=== PATIENT | female | born 1970 | race Caucasian/White ===

== ENCOUNTER 2019-01-26 06:00 | Outpatient (RCR) | payer OTHER, SELFPAY | END 2019-02-25 00:01 | LOC: SPT 06:00 | PROVIDERS: Family Provider Nurse Practitioner Family | DX: M47.816 Spondylosis without myelopathy or radiculopathy, lumbar region (principal); M99.04 Segmental and somatic dysfunction of sacral region; M50.122 Cervical disc disorder at C5-C6 level with radiculopathy | CPT/HCPCS: 97140 ×3; G0283 ×3 ==

== ENCOUNTER 2019-02-26 06:00 | Outpatient (RCR) | payer SELFPAY | END 2019-03-04 23:00 | disposition home or self-care (01) | LOC: SPT 06:00 | PROVIDERS: Family Provider Nurse Practitioner Family; PCP Nurse Practitioner Family | DX: M47.816 Spondylosis without myelopathy or radiculopathy, lumbar region (principal); M99.04 Segmental and somatic dysfunction of sacral region; M50.122 Cervical disc disorder at C5-C6 level with radiculopathy ==

== ENCOUNTER 2019-04-02 13:15 | Outpatient (CLI) | payer BC, SELFPAY ==
--- NOTE | 2019-04-02 13:29 | XR_ITS ---
WS: [id number] LUMBAR SPINE FLEXION AND EXTENSION TECHNIQUE: 3 views of the lumbar spine: Lateral neutral, flexion, and extension views. CLINICAL INFORMATION: LOW BACK PAIN COMPARISON: None. FINDINGS: Normal lumbar alignment on the neutral view. No instability on the flexion and extension views. Disc space narrowing worse L5-S1 with vacuum disc phenomenon. Mild facet arthropathy L4-L5 and L5-S1. Mild chronic anterior wedging at T11. Bony forami nal narrowing L5-S1. XR/XR lumbar spine f/e only [id number] IMPRESSION: 1. No instability on flexion-extension. 2. Disc space narrowing worse L5-S1. 3. Mild facet arthropathy lower lumbar spine with bony foraminal narrowing L5- S1.
== END 2019-04-02 13:16 | disposition home or self-care (01) ==
LOC: WPI 13:22
PROVIDERS: Family Provider Nurse Practitioner Family; PCP Nurse Practitioner Family; Visit Provider Nurse Practitioner
DX: M54.5 Low back pain (principal); M47.817 Spondylosis without myelopathy or radiculopathy, lumbosacral region
CPT/HCPCS: 72120

== ENCOUNTER 2019-04-15 09:47 | Outpatient (CLI) | payer BC, SELFPAY ==
--- NOTE | 2019-04-15 09:54 | MM_ITS ---
WS: [id number] BILATERAL DIGITAL SCREENING MAMMOGRAPHY WITH CAD CLINICAL INFORMATION: SCREENING HISTORY: Screening mammogram. No current complaints. COMPARISON: March 19, 2014 TECHNIQUE: Bilateral CC and MLO views. FINDINGS: The breasts are composed of heterogeneous fibroglandular density tissue, which can limit the detectio n of small underlying mass lesions. No suspicious mass, asymmetry, calcifications, or architectural d istortion. No evidence of malignancy. MM/[place] [id number] IMPRESSION: BI-RADS: 1-Negative FOLLOW UP: 1 Year Follow-up Recommend return to annual screening mammography.
== END 2019-04-15 09:48 | disposition home or self-care (01) ==
LOC: RADSHAW 09:52
PROVIDERS: Family Provider Nurse Practitioner Family; PCP Nurse Practitioner Family; Visit Provider Nurse Practitioner Family
DX: Z12.31 Encounter for screening mammogram for malignant neoplasm of breast (principal)
CPT/HCPCS: 77067

== ENCOUNTER → 2019-10-02 14:30 | Outpatient (BNVA) | payer BC, SELFPAY | PROVIDERS: Family Provider Nurse Practitioner Family; PCP Nurse Practitioner Family; Visit Provider Nurse Practitioner Family | DX: R53.83 Other fatigue (principal); E78.2 Mixed hyperlipidemia; D64.9 Anemia, unspecified; E55.9 Vitamin D deficiency, unspecified; W57.XXXA Bitten or stung by nonvenomous insect and other nonvenomous arthropods, initial encounter; Z79.899 Other long term (current) drug therapy; H66.90 Otitis media, unspecified, unspecified ear; N39.0 Urinary tract infection, site not specified; B96.29 Other Escherichia coli [E. coli] as the cause of diseases classified elsewhere; Z16.12 Extended spectrum beta lactamase (ESBL) resistance | CPT/HCPCS: 80053; 80061; 81003; 82306; 82607; 82746; 83036; 83540; 84443; 85025; 86000; 86618; 86666; 86757; 87077; 87086; 87186 ==

== ENCOUNTER 2019-10-09 19:18 | Emergency (ER) | payer BC, SELFPAY ==
[2019-10-09 19:31] VITALS: BP 177/90; PULSE 83; RESP 16; TEMP 36.8; O2SAT 100; BMI 34.0
--- NOTE | 2019-10-09 20:00 | ED_ITS ---
HPI - Extremity Problem General: Chief complaint: Extremity Injury, Lower Stated complaint: RIGHT LEG INJURY Time Seen by Provider: 10/09/19 19:40 Source: patient Mode of arrival: ambulatory Limitations: no limitations History of Present Illness: HPI Narrative: [place] and scraped her right jessica on an object. She sustained an abrasion on the leg and there is some pain and swelling. She went to her PCP's office at closing time and they asked her to come to the ED to be evaluated. They were wondering whether she may have had a clot (from an injury a couple of hours ago). She has no difficulty bearing weight on the RLE, has no recent history of long distance travel, no prior DVT history. MD Complaint: extremity pain Onset (ago): hour(s) Pain Consistency: constant Location: right and lower extremity Severity scale (1-10): 2 Quality: aching Radiation: none Relieving factors: other (none tried) Exacerbating factors: palpation Associated symptoms: Deny arthralgias, chest pain, fever(s), rash or short of breath Review of Systems General: Reports: 10 or more systems reviewed and unremarkable except in HPI and below Const: Denies: fever(s) Eyes: Denies: change in vision or blurry vision ENMT: Denies: throat pain, enlarged tonsils, odynophagia, hoarseness, mouth pain or swelling of lips/tongue Card: Denies: chest pain Resp: Denies: dyspnea, productive cough or non-productive cough GI: Denies: abdominal pain, nausea or vomiting : Denies: flank pain, difficulty voiding, dysuria, urinary frequency, urinary urgency or urinary hesitancy Musc: Denies: neck pain, back pain or extremity swelling Skin/Breast: Reports: new lesions (abrasion); Denies: rash, pruritus or erythema Neuro: Denies: headache(s), numbness in extremities or weakness in extremities Endo: Denies: polyuria, polydipsia or tired all the time [facility] PFSH: Medical History Anemia Medication management Mixed hyperlipidemia Otitis media Rectal bleeding Tick bite UTI due to extended-spectrum beta lactamase (ESBL) producing Escherichia coli Vitamin D deficiency Surgical History H/O section H/O neck surgery H/O: hysterectomy partial Hx of appendectomy Hx of breast reduction, elective Hx of cholecystectomy Family History Father Cancer colon cancer Grandfather Cancer colon cancer Family/Other Cancer 2 uncles with colon cancer Other Diabetes Denies family history of CAD (coronary artery disease) Anesthesia complication Bleeding disorder Social History Smoking and tobacco status: never smoked Alcohol intake: never Lives independently: Yes Marital status: Single Current occupational status: employed History of recent travel: Yes ([place]) Out of state: Yes Out of country: No Physical Exam Const: COMMON NORMALS: no acute distress, average body habitus, patient oriented x3, no limitations, healthy appearing, alert and well nourished HENMT: COMMON NORMALS: normocephalic, atraumatic and moist oral mucous membranes HEAD & SCALP: normocephalic and atraumatic Neck/C-Spine: COMMON NORMALS: full ROM, supple, no meningeal signs, no JVD and No carotid bruits Resp: COMMON NORMALS: normal respiratory effort, No retractions, No use of accessory muscles, clear to auscultation bilaterally and percussion normal AUSCULTATION: clear to auscultation bilaterally PERCUSSION: percussion normal Cardio: COMMON NORMALS: no JVD, regular rate, regular rhythm, S1 normal heart sound present, S2 normal heart sound present, No gallops present (Cardio), No clicks present (Cardio), No murmurs present (Cardio), No rub (Cardio) and Peripheral pulses 2+ throughout RATE: regular rate RHYTHM: regular rhythm HEART SOUNDS: S1 normal heart sound present and S2 normal heart sound present PERIPHERAL PULSES: Peripheral pulses 2+ throughout GI: COMMON NORMALS: Normal to inspection, nondistended, normoactive bowel sounds present, Soft to palpation, non-tender, No hepatosplenomegaly present, no masses and no bruits PALPATION: Yes Soft to palpation and Yes No hepatosplenomegaly present : COMMON NORMALS: Yes no CVA tenderness BLADDER/KIDNEY EXAM: Yes no CVA tenderness Back/Pelvis: COMMON NORMALS: no CVA tenderness Extremity: COMMON NORMALS: normal to inspection, full ROM, capillary refill normal, no calf tenderness and no pedal edema NARRATIVE EXTREMITY EXAM: Knee joint normal in examination Neuro: COMMON NORMALS: patient oriented x3 SENSORIUM/ORIENTATION: Yes alert MENINGEAL SIGNS: Yes no meningeal signs Skin: COMMON NORMALS: no wounds, turgor normal, no jaundice, no petechiae and no mottling GENERAL SKIN EXAM: turgor normal TRAUMA: abrasion (abrasion noted to her right anterior leg with no bleeding. ) OTHER: Swelling around the abrasion with mild tenderness. No bleeding. No calf tenderness. She has erythema consistent with sun [place] on both upper and lower extremities. Course ED course: Patient with a fall who sustained an abrasion to her right anterior leg. Examination is unremarkable for serious injuries and she is discharged home with wound care instructions. Vital Signs: Vital signs: Vital Signs Temperature 98.2 F 10/09/19 19:31 Pulse Rate 68 10/09/19 20:44 Respiratory Rate 18 10/09/19 20:44 Blood Pressure 112/74 10/09/19 20:44 Pulse Oximetry 99 10/09/19 20:44 MDM - Extremity (Nontraumatic) MDM Narrative: Medical decision making narrative: Patient who presented to the ED with an abrasion to her right leg following a fall. No serious injury on examination. She is discharged home on conservative measures and wound care instructions. Medical Records: Attestation: I reviewed the patient's medical records. Discharge Plan Discharge Patient Disposition: Home Clinical Impression: Abrasion Contusion Qualifiers: Encounter type: initial encounter Contusion area: lower leg Laterality: right Qualified Code(s): S80.11XA - Contusion of right lower leg, initial encounter Fall Qualifiers: Encounter type: initial encounter Qualified Code(s): W19.XXXA - Unspecified fall, initial encounter Condition: Stable Prescriptions: Continued lidocaine HCl [Xylocaine] 10 mg/mL (1 %) solution 2 ml IM ONCE Qty: 1 RF: 0 lisinopril-hydrochlorothiazide 10-12.5 mg tablet PO RF: 0 lidocaine HCl [Xylocaine] 10 mg/mL (1 %) solution 1 ml IM ONCE Qty: 1 RF: 0 amoxicillin-pot clavulanate [Augmentin] 875-125 mg tablet 1 tab PO BID 7 Days Qty: 14 RF: 0 nitrofurantoin monohyd/m-cryst [Macrobid] 100 mg capsule 100 mg PO Q12H 7 Days Qty: 14 RF: 0 Discharge Orders: Discharge Order (Routine); Ordered 10/09/19 Ordered By: Annie Braden Referrals: MARKO Fan, AEROBICS INSTRUCTOR [Primary Care Provider] - 4-7 days Discharge Diet: Usual diet Discharge Activity: Increase activity as tolerated Patient Instructions: Abrasion (ED), Fall Prevention (ED) Activity Restrictions/Additional Instructions: Return for any new or worsening symptoms. Apply ice to the right leg to reduce swelling. Clean the abrasion daily with soap and water and apply an antibiotic ointment to it. Follow-up with your primary care provider within 1 week. Elevate your leg to reduce swelling. Discharge Date/Time: 10/09/19 20:45 Coding Level of Care Code ED Tank Driver for May Washburn
[2019-10-09 20:44] VITALS: BP 112/74; PULSE 68; RESP 18; O2SAT 99
== END 2019-10-09 20:45 | disposition home or self-care (01) ==
PROVIDERS: Emergency Provider Family Medicine; PCP Nurse Practitioner Family
DX: S80.11XA Contusion of right lower leg, initial encounter (principal); W01.198A Fall on same level from slipping, tripping and stumbling with subsequent striking against other object, initial encounter; E78.2 Mixed hyperlipidemia
CPT/HCPCS: 12345; 99281

== ENCOUNTER 2019-10-13 06:05 | Day surgery (SDC) | payer BC, SELFPAY ==
[2019-10-10 07:38] VITALS: BMI 34.8
[2019-10-13 06:22] VITALS: BP 131/101; PULSE 83; RESP 16; TEMP 37; O2SAT 97
--- NOTE | 2019-10-13 06:32 | W.PM.OPSUD ---
Surgery/Procedure H&P Update DATE OF PROCEDURE: October 13, 2019 DATE H&P PERFORMED: 09/24/19 H&P UPDATE INFORMATION: I have reviewed H&P completed within last 30 days, I have examined patient prior to procedure and No changes to prior documentation (Except patient had an abrasions on her RLE few days ago [place] PREOP DIAGNOSIS: Bleeding per rectum and family history of colon cancer PRIMARY INDICATION FOR PROCEDURE: The same PLANNED PROCEDURE: Operation Date: 10/13/19 07:00 Proposed Procedures p Colonoscopy 41385 K62.5(Not Applicable) - Franco Couch MD
[2019-10-13] MEDS: sodium chloride 0.9% 1,000 ML 30 ML IV (06:37)
--- NOTE | 2019-10-13 06:42 | ANES.PREANE2 ---
Pre-Anesthetic Assessment Pre-Anesthetic Assessment: Height/Weight: Height 1.73 m Weight 103.873 kg Temp Pulse Resp BP Pulse Ox 98.6 F 83 16 131/101 97 10/13/19 06:22 10/13/19 06:22 10/13/19 06:22 10/13/19 06:22 10/13/19 06:22 Preop Diagnosis: Bleeding per rectum and family history of colon cancer Proposed Procedure: Operation Date: 10/13/19 07:00 Proposed Procedures p Colonoscopy 93946 K62.5(Not Applicable) - Franco Couch MD Familial anesthetic complications: none Was Beta Lisa taken within 24 hours: N/A Last intake: Intake Last Liquid Date 10/12/19 Last Liquid Time 21:00 Last Solid Date 10/11/19 Last Solid Time 04:00 Social: Social History: No alcohol and No tobacco Exam: Pre-Anes Outpt Exam: alert, oriented x 3, clear to auscultation bilaterally and regular rate & rhythm Airway: Submandibular: WNL Cervical ROM: WNL MP: 1 Dentition: Full Pulmonary: Pulmonary: None reported CV/HEM: CV/HEM: Arrythmia, HTN and Murmur : : UTI (on antibiotics for UTI currently) Hepatic: Hepatic: Hepatitis (Patient claims hepatitis A years ago from a nearby sewage [place] she was around) GI: GI: None reported Metabolic: Metabolic: Morbid obesity Musc/skel: Musc/skel: Lower Back Pain Neuropsych: Neuropsych: None reported Anesthetic Plan: ASA status: 2 Anesthesia: MAC Risk of > 500 ml blood loss (7ml/kg in children): No Meds/Allergies Current Medications: Current Medications Generic Name Dose Route Start Last Admin Trade Name Freq PRN Reason Stop Dose Admin Sodium Chloride 1,000 mls @ 30 ml s/hr 10/13/19 06:15 10/13/19 06:37 Sodium Chloride 0.9% IV 10/14/19 06:14 30 mls/hr .Q24H AGATHA Administration PFSH Anesthesia PFSH: Medical History Anemia Medication management Mixed hyperlipidemia Otitis media Rectal bleeding Tick bite UTI due to extended-spectrum beta lactamase (ESBL) producing Escherichia coli Vitamin D deficiency Surgical History H/O section H/O neck surgery H/O: hysterectomy partial Hx of appendectomy Hx of breast reduction, elective Hx of cholecystectomy Family History Father Cancer colon cancer Grandfather Cancer colon cancer Family/Other Cancer 2 uncles with colon cancer Other Diabetes Denies family history of CAD (coronary artery disease) Anesthesia complication Bleeding disorder Social History Smoking and tobacco status: never smoked Alcohol intake: never Lives independently: Yes Marital status: Single Current occupational status: employed History of recent travel: Yes ([place]) Out of state: Yes Out of country: No Data Anesthesia Cardiac Studies: No Data to Display
--- NOTE | 2019-10-13 07:07 | SUR.OPER ---
clip placed at rt colon bx site
[2019-10-13 07:17] VITALS: BP 118/68; PULSE 91; RESP 16; TEMP 36.3; O2SAT 97
--- NOTE | 2019-10-13 07:20 | ANE.PACU2 ---
Inpatient post-anesthesia follow up: Airway intact: Yes Vital signs: Temperature 98.6 F Pulse Rate 83 Respiratory Rate 16 Blood Pressure 131/101 Pulse Oximetry 97 Oxygen Delivery Me thod Oxygen Flow Rate Fraction of Inspir ed Oxygen Hydration adequate: Yes Nausea and vomiting: No Pain level: 1 Mental status: Baseline
[2019-10-13 07:34] VITALS: BP 118/82; PULSE 71; RESP 18; O2SAT 97
== END 2019-10-13 07:55 | disposition home or self-care (01) ==
PROVIDERS: PCP Nurse Practitioner Family; Visit Provider Surgery
PROC: 0DJD8ZZ Inspection of Lower Intestinal Tract, Via Natural or Artificial Opening Endoscopic (ICD-10-PCS; CPT 45378; principal; 2019-10-13 07:00)
DX: D12.7 Benign neoplasm of rectosigmoid junction (principal); D12.2 Benign neoplasm of ascending colon; Z80.0 Family history of malignant neoplasm of digestive organs; I10 Essential (primary) hypertension; R01.1 Cardiac murmur, unspecified; E78.2 Mixed hyperlipidemia; E55.9 Vitamin D deficiency, unspecified; D64.9 Anemia, unspecified
CPT/HCPCS: 12345; 45380; 88305; J2704; J7030

== ENCOUNTER → 2020-02-04 11:47 | Outpatient (BNVA) | payer BC, SELFPAY | PROVIDERS: PCP Nurse Practitioner Family; Visit Provider Nurse Practitioner | DX: N39.0 Urinary tract infection, site not specified (principal) | CPT/HCPCS: 81000; 87086 ==

== ENCOUNTER → 2020-03-17 17:28 | Outpatient (BNVA) | payer BC, SELFPAY | PROVIDERS: PCP Nurse Practitioner Family; Visit Provider Nurse Practitioner | DX: N39.0 Urinary tract infection, site not specified (principal); B37.3 Candidiasis of vulva and vagina | CPT/HCPCS: 81000; 87086 ==

== ENCOUNTER 2020-05-27 09:29 | Outpatient (CLI) | payer BC, SELFPAY ==
--- NOTE | 2020-05-27 10:00 | MM_ITS ---
WS: [id number] BILATERAL DIGITAL SCREENING MAMMOGRAPHY WITH CAD CLINICAL INFORMATION: Z12.31 - Encounter for screening mammogram for malignant neoplasm of breast HISTORY: Screening mammogram. Bilateral breast tenderness COMPARISON: April 15, 2019 TECHNIQUE: Bilateral CC and MLO views. FINDINGS: Evidence of prior breast reduction. The breasts are composed of heterogeneous fibroglandular density tissue, which can limit the detectio n of small underlying mass lesions. No suspicious mass, asymmetry, calcifications, or architectural d istortion. No evidence of malignancy. MM/[place] [id number] IMPRESSION: BI-RADS: 2-Benign FOLLOW UP: 1 Year Follow-up Recommend return to annual screening mammography.
== END 2020-05-27 09:30 | disposition home or self-care (01) ==
LOC: RADSHAW 09:30
PROVIDERS: PCP Nurse Practitioner Family; Visit Provider Nurse Practitioner Family
DX: Z12.31 Encounter for screening mammogram for malignant neoplasm of breast (principal)
CPT/HCPCS: 77067

== ENCOUNTER 2020-07-15 11:01 | Outpatient (CLI) | payer OTHER, SELFPAY ==
--- NOTE | 2020-07-15 11:34 | XR_ITS ---
WS: [id number] Left rib detail, 3 views, 07/15/2020 Clinical Data: trauma to rib cage Comparison: None. Findings: No rib fractures are seen. There is no subcutaneous emphysema or left pleural effusion. No left pneum othorax is noted. There are disc spacers in the lower cervical discs. There are clips in the right up per quadrant from a cholecystectomy. XR/XR ribs LT 2V* [id number] Impression: Negative left rib detail.
--- NOTE | 2020-07-15 11:34 | XR_ITS ---
WS: [id number] Right elbow, 3 views, 07/15/2020 Clinical Data: trauma to elbow Comparison: None. Findings: No fractures or dislocations are seen. The radial head is normal. The soft tissues are unremarkable. XR/XR elbow RT min 3V* [id number] Impression: Negative right elbow.
== END 2020-07-15 11:02 | disposition home or self-care (01) ==
LOC: RADWPI 11:05
PROVIDERS: PCP Nurse Practitioner Family; Visit Provider Family Medicine
DX: S46.911A Strain of unspecified muscle, fascia and tendon at shoulder and upper arm level, right arm, initial encounter (principal); S20.212A Contusion of left front wall of thorax, initial encounter; X58.XXXA Exposure to other specified factors, initial encounter
CPT/HCPCS: 71100; 73080

== ENCOUNTER 2020-08-10 06:00 | Outpatient (RCR) | payer OTHER, SELFPAY | END 2020-08-25 23:59 | disposition home or self-care (01) | LOC: SPT 06:00 | PROVIDERS: PCP Nurse Practitioner Family; Referring Provider Family Medicine; Visit Provider Family Medicine | DX: S29.011D Strain of muscle and tendon of front wall of thorax, subsequent encounter (principal); Y99.0 Civilian activity done for income or pay; S46.911D Strain of unspecified muscle, fascia and tendon at shoulder and upper arm level, right arm, subsequent encounter; X58.XXXD Exposure to other specified factors, subsequent encounter | CPT/HCPCS: 97110; 97140; 97162 ==

== ENCOUNTER 2020-08-26 06:00 | Outpatient (RCR) | payer OTHER, BC, SELFPAY | END 2020-09-25 23:59 | disposition home or self-care (01) | LOC: SPT 06:00 | PROVIDERS: PCP Nurse Practitioner Family; Referring Provider Family Medicine; Visit Provider Family Medicine | DX: S29.011A Strain of muscle and tendon of front wall of thorax, initial encounter (principal); S46.911A Strain of unspecified muscle, fascia and tendon at shoulder and upper arm level, right arm, initial encounter; X58.XXXA Exposure to other specified factors, initial encounter; Y99.0 Civilian activity done for income or pay | CPT/HCPCS: 97110; 97140 ==

== ENCOUNTER 2020-12-09 12:23 | Outpatient (CLI) | payer BC, SELFPAY ==
[2020-12-09 12:49] LABS: Basophils % 0.4 %; Eosinophils # 0.2 10^3/uL (0.0-0.8); Eosinophils % 3.2 %; Hematocrit 41.3 % (37.0-47.0); Hemoglobin 13.7 g/dL (11.5-15.3); Lymphocytes # 1.6 10^3/uL (0.8-4.8); Lymphocytes % 29.9 %; Mean Corpuscular HGB Conc 33.2 g/dL (30.0-36.0); Mean Corpuscular Hemoglobin 28.4 pg (28.0-34.0); Mean Corpuscular Volume 85.5 fl (81-99); Monocytes # 0.3 10^3/uL (0.2-0.9); Monocytes % 6.2 %; Neutrophils # 3.23 10^3/uL (1.8-7.7); Neutrophils % 60.1 %; Nucleated Red Blood Cells % 0 %; Platelet Count 265 10^3/cmm (130-400); Red Blood Count 4.83 10^6/uL (4.1-5.3); Red Cell Distribution Width 12.5 % (12.1-15.1); White Blood Count 5.4 10^3/uL (4.0-10.0)
[2020-12-09 13:18] LABS: Estmated Average Glucose 120; Hemoglobin A1C 5.8 % (4.0-6.0)
[2020-12-09 13:53] LABS: 25 Hydroxy Vitamin D 58 ng/mL (30-100); Alanine Aminotransferase 31 U/L (0-33); Albumin Level 4.1 g/dL (3.5-5.2); Alkaline Phosphatase 109 IU/L (35-105); Anion Gap 12.9 (5-19); Aspartate Amino Transferase 26 U/L (0-32); Blood Urea Nitrogen 13 mg/dL (6-20); Carbon Dioxide 26 mmol/L (22-29); Chloride 103 mmol/L (98-107); Chol HDL Ratio 4.03 mg/dL (0.0-4.40); Cholesterol 149 mg/dL (0-200); Globulin 2.8 g/dL (1.3-4.6); Glomerular Filtration Rate 75.6 mL/min (90-130); Glucose 110 mg/dL (65-115); HDL Cholesterol 37 mg/dL (60-100); Iron 62 ug/dL (37-145); LDL Cholesterol Calculated 47 mg/dL (50-129); LDL HDL Ratio 1.27 RATIO (0.00-3.22); Osmolality Calculated 287 mOsm/kg (285-295); Potassium 3.9 mmol/L (3.5-5.1); Sodium 138 mmol/L (136-145); Thyroid Stimulating Hormone 2.94 uIU/mL (0.27-4.20); Total Bilirubin 0.3 mg/dL (0.15-1.2); Total Iron Binding Capacity 310 mcg/dl; Total Protein 6.9 g/dL (6.6-8.7); Triglycerides 326 mg/dL (0-150); Unsaturated Iron Binding 248 ug/dL (112-347); Vitamin B12 456 pg/mL (232-1245)
== END 2020-12-09 12:24 | disposition home or self-care (01) ==
LOC: LAB 12:28
PROVIDERS: PCP Nurse Practitioner Family; Visit Provider Nurse Practitioner Family
DX: I10 Essential (primary) hypertension (principal); E55.9 Vitamin D deficiency, unspecified; Z79.899 Other long term (current) drug therapy; D64.9 Anemia, unspecified; E78.2 Mixed hyperlipidemia
CPT/HCPCS: 36415; 80053; 80061; 82306; 82607; 83036; 83540; 83550; 84443; 85025

== ENCOUNTER 2021-03-22 19:19 | Outpatient (CLI) | payer BC, SELFPAY ==
--- NOTE | 2021-03-22 19:34 | XR_ITS ---
WS: [id number] Right knee, 3 views, 03/22/2021 Clinical Data: injury Comparison: None. Findings: No fractures or dislocations are seen. The joint spaces are normal. The patella is intact. The soft t issues are unremarkable. XR/XR knee RT 3V* [id number] Impression: Negative right knee. Kellgren-Chris Classification: grade 0 (none): definite absence of x-ray ed nges of osteoarthritis
== END 2021-03-22 19:20 | disposition home or self-care (01) ==
LOC: RAD 19:22
PROVIDERS: PCP Nurse Practitioner Family; Visit Provider Registered Nurse Neonatal Intensive Care
DX: S89.91XA Unspecified injury of right lower leg, initial encounter (principal); X58.XXXA Exposure to other specified factors, initial encounter
CPT/HCPCS: 73562

== ENCOUNTER 2021-04-07 12:18 | Outpatient (CLI) | payer OTHER, SELFPAY ==
--- NOTE | 2021-04-07 12:30 | USCV_ITS ---
Saida Keita Age: 50 Gender: F : 1970 Exam Date: 04/07/2021 12:54 Ordering Phys: Kelton Anderson MD Technologist: LICHA Exam Location: [facility] Indication: DVT PROCEDURES: Venous duplex imaging was performed in bilateral lower extremities. The following venous structures were evaluated: common femoral vein, profunda vein, proximal portion of the greater saphenous vein, superficial femoral vein, and the popliteal vein. In addition, the posterior tibial and peroneal trunk were evaluated. Serial compression, augmentation maneuvers, and spectral Doppler flow evaluation were performed. FINDINGS: Normal 2-D Doppler and augmentation and compressibility throughout the lower extremity venous structures. Additional imaging through the proximal calf veins also reveals no thrombus. Limited evaluation of the greater saphenous vein is patent with no thrombus. CONCLUSIONS No DVT right lower extremity. Dr. Janey Dubose DO (Electronically Signed) Final Date: 07 April 2021 14:38 Amended: 07 April 2021 16:00 C
--- NOTE | 2021-04-07 13:15 | US_ITS ---
WS: [id number] ULTRASOUND SOFT TISSUES RIGHT lower extremity. HISTORY: posterior leg injury while running..., Possible hamstring injury. COMPARISON: None available. TECHNIQUE: 2-D and color Doppler imaging is submitted. Ultrasound is performed from the RIGHT ischial tuberosity to the knee. No focal area of tendon retrac tion. There is no significant amount of edema. There is very slight interruption of the muscle fibers posterior to the RIGHT knee which may represent a small muscle tear. This exact muscle group cannot be determined. There is not a lot of fluid. US/US soft tissue/extremity [id number] IMPRESSION: 1. No significant amount of fluid or blood along the region of the RIGHT hamst ring. 2. Suspect there may be a small tear involve the muscles just above the knee. For further evaluation consider MRI of the RIGHT knee.
== END 2021-04-07 12:19 | disposition home or self-care (01) ==
PROVIDERS: PCP Nurse Practitioner Family; Visit Provider Family Medicine
DX: I82.409 Acute embolism and thrombosis of unspecified deep veins of unspecified lower extremity (principal); S76.319A Strain of muscle, fascia and tendon of the posterior muscle group at thigh level, unspecified thigh, initial encounter; X58.XXXA Exposure to other specified factors, initial encounter
CPT/HCPCS: 76882; 93971

== ENCOUNTER → 2021-09-30 11:09 | Outpatient (BNVA) | payer SELFPAY | PROVIDERS: PCP Nurse Practitioner Family; Visit Provider Nurse Practitioner Family | DX: E55.9 Vitamin D deficiency, unspecified (principal); D64.9 Anemia, unspecified; I10 Essential (primary) hypertension | CPT/HCPCS: 80053; 82306; 85025 ==

== ENCOUNTER 2021-12-05 09:38 | Outpatient (CLI) | payer OTHER, MEDICAID, SELFPAY ==
--- NOTE | 2021-12-05 09:54 | XR_ITS ---
WS: [id number] Lumbar spine, 3 views, 12/05/2021 Clinical Data: M54.50 - Low back pain, unspecified Comparison: Lateral lumbar spine, 04/02/2019 Findings: No compression fractures or subluxation is seen. There is degenerative disc narrowing at L5-S1. Anter ior osteophyte formation is seen at all the lumbar vertebra.. The transverse processes and SI joints are normal. Facet joint arthritis is present from L4 through S1. XR/XR lumbar spine 2-3V* [id number] Impression: 1. Degenerative disc narrowing L5-S1. 2. Anterior osteophyte formation at all lumbar levels with facet joint arthriti s L4-S1.
== END 2021-12-05 09:39 | disposition home or self-care (01) ==
LOC: RAD 09:40
PROVIDERS: PCP Nurse Practitioner Family; Visit Provider Nurse Practitioner Family
DX: M54.50 Low back pain, unspecified (principal); M25.78 Osteophyte, vertebrae
CPT/HCPCS: 72100

== ENCOUNTER 2022-01-10 15:17 | Outpatient (CLI) | payer OTHER, MEDICAID, SELFPAY ==
--- NOTE | 2022-01-10 15:15 | MR_ITS ---
WS: [id number] MRI LUMBAR SPINE NONCONTRAST HISTORY: Low back pain for 20 years. Leg swelling and tingling. COMPARISON: No similar studies. TECHNIQUE: Sagittal and axial multisequence imaging is submitted. Prior cervical fusion at C5-6 and C6-7. L3 retrolisthesis by 2 mm. Mild disc space narrowing and desiccation throughout the lumbar spine most significant at L5-S1. No fractures or marrow edema. Conus terminates normally at L1. T11-12: Mild annular disc bulging and osteophytic ridging. Benign hemangioma within T11. L1-L2: Mild ligamentum flavum and facet arthritis. No stenosis. L2-L3: Mild annular disc bulge and moderate facet and ligamentum flavum arthritis. No stenosis. L3-L4: Moderate annular disc bulge with moderate ligamentum flavum and facet arthritis encroaching in to the central canal and subarticular recesses. No focal disc protrusion. There is mild central and b ilateral subarticular recess encroachment. Most significant encroachment upon the traversing L4 nerve roots. Very minimal RIGHT foraminal narrowing. L4-L5: Mild disc bulging with a small LEFT foraminal disc protrusion. Moderate ligamentum flavum and facet arthritis encroaching towards the central canal. Mild central and bilateral subarticular recess stenosis. No foraminal stenosis. L5-S1: Diffuse osteophytic ridging and disc bulging. Disc asymmetrically bulges to the LEFT. Moderate facet joint arthritis. No central stenosis. There is mild bilateral subarticular recess stenosis. Ve ry mild foraminal narrowing due to osteophyte disease predominantly in the LEFT asymmetric disc bulge . Mild atherosclerosis aorta. MR/MR lumbar spine wo con* [id number] IMPRESSION: 1. Mild central and bilateral subarticular recess stenosis at L3-4. Most signi ficant encroachment upon the traversing L4 nerve roots with very minimal RIGHT foraminal narrowing. 2. Mild central and bilateral subarticular recess stenosis at L4-5. 3. Mild bilateral subarticular recess stenosis at L5-S1 due to osteophyte dise ase predominantly. 4. Facet joint arthritis is moderate from L3-4 to L5-S1.
== END 2022-01-10 15:18 | disposition home or self-care (01) ==
LOC: RAD 15:18
PROVIDERS: PCP Nurse Practitioner Family; Visit Provider Nurse Practitioner Family
DX: M51.36 Other intervertebral disc degeneration, lumbar region (principal)
CPT/HCPCS: 72148

== ENCOUNTER 2022-02-09 11:51 | Outpatient (CLI) | payer OTHER, MEDICAID, SELFPAY ==
--- NOTE | 2022-02-09 11:59 | MM_ITS ---
WS: [id number] BILATERAL SCREENING DIGITAL TOMOSYNTHESIS MAMMOGRAM WITH CAD HISTORY: SCREENING COMPARISON: 05/27/2020, 04/15/2019 Bilateral CC and MLO views with tomosynthesis and synthetic mammography submitted. Computer aided det ection analyzed. Breast composition: The breasts are heterogeneously dense, which may obscure small masses. No suspici ous masses, microcalcifications or architectural distortion. Architectural distortion is stable. Dist ortion is from prior mammoplasty. MM/[place] [id number] IMPRESSION: BI-RADS: 2-Benign FOLLOW UP: 1 Year Follow-up
== END 2022-02-09 11:52 | disposition home or self-care (01) ==
LOC: RAD 11:52
PROVIDERS: PCP Nurse Practitioner Family; Visit Provider Nurse Practitioner Family
DX: Z12.31 Encounter for screening mammogram for malignant neoplasm of breast (principal)
CPT/HCPCS: 77063; 77067

== ENCOUNTER 2022-05-08 16:27 | Emergency (ER) | payer OTHER, MEDICAID, SELFPAY ==
[2022-05-08 16:52] VITALS: BP 163/94; PULSE 73; RESP 16; TEMP 36.7; O2SAT 99
--- NOTE | 2022-05-08 17:13 | XRR_ITS ---
PROCEDURE INFORMATION: Exam: XR Right Knee Exam date and time: 05/08/2022 5:32 PM Age: 51 years old Clinical indication: Injury or trauma; Fall; Swelling (edema); Knee; Right; Prior surgery; Surgery date: 1-6 months TECHNIQUE: Imaging protocol: Radiologic exam of the right knee. Views: 3 views. COMPARISON: No relevant prior studies available. FINDINGS: Bones/joints: Severe tricompartmental osteoarthritis of knee. Soft tissues: Normal. XR/XR knee RT 3V* [id number] IMPRESSION: 1. Negative for fracture or dislocation. 2. Severe tricompartmental osteoarthritis of knee.
--- NOTE | 2022-05-08 17:13 | W.ED.EXTPRO ---
HPI - Extremity Problem General: Chief complaint: Extremity Injury, Lower Stated complaint: Right Knee injury Time Seen by Provider: 05/08/22 17:11 History of Present Illness: 51-year-old female comes in today for complaints of injury to the left knee. Injury occurred on Sunday of last week, 10 days ago. Patient reports that she was assisting her neighbor up out of the wheelchair when she felt her knee strain. Patient states that 1 year ago she had torn her meniscus and a Workmen's Compensation related injury. Patient saw Dr. Santillan for her orthopedic provider in [place]. Patient had to have total of 3 surgeries on her knee first to repair of the meniscus and then to repair an abnormality in her vessel in the back of her knee. Patient reports increased pain and discomfort. Patient appears nontoxic. No significant swelling is noted distally to the knee. Patient has a history of degenerative disc disease, DVT, hamstring tear, post menopause, mixed hyperlipidemia, anemia. Patient takes medications for blood pressure, seasonal allergies. Associated symptoms: Deny chest pain, fever(s) or rash Review of Systems Const: Denies: fever(s) Card: Denies: chest pain Resp: Denies: dyspnea Musc: Reports: joint pain (Right knee) Skin/Breast: Denies: rash PFSH ED PFSH: Medical History Anemia Bilateral otitis media Breast cancer screening by mammogram Cervical strain Changing skin lesion Ear infection Environmental and seasonal allergies Essential hypertension Fatigue Headache Medication management Mixed hyperlipidemia Neck pain Obesity Otitis media Post-menopausal atrophic vaginitis Rectal bleeding Tick bite UTI due to extended-spectrum beta lactamase (ESBL) producing Escherichia coli Vitamin D deficiency Surgical History H/O section H/O neck surgery H/O: hysterectomy partial Hx of appendectomy Hx of breast reduction, elective Hx of cholecystectomy Family History Father Colon cancer, Onset Age: 74 Grandfather No problems noted. Family/Other No problems noted. Grandmother Diabetes paternal great Mother Hypertension Stroke Uterine cancer late 50's Sister Uterine cancer 40's x2 sister Denies family history of Ovarian cancer CAD (coronary artery disease) Clotting disorder Hyperlipidemia Breast cancer Anesthesia complication Bleeding disorder Social History Smoking and tobacco status: never smoked Alcohol intake: never Physical Exam Const: COMMON NORMALS: alert HENMT: COMMON NORMALS: normocephalic HEAD & SCALP: normocephalic Neck/C-Spine: COMMON NORMALS: full ROM Resp: COMMON NORMALS: normal respiratory effort Cardio: COMMON NORMALS: regular rate RATE: regular rate Back/Pelvis: COMMON NORMALS: thoracic and lumbar spine normal to inspection Extremity: RIGHT LOWER EXTREMITY: Yes knee joint (Posterior and lateral tenderness. Proximal swelling. Decreased range of m) Right knee: Yes inspection, Yes palpation and Yes ROM Neuro: SENSORIUM/ORIENTATION: Yes alert Skin: COMMON NORMALS: no rashes or lesions noted GENERAL SKIN EXAM: no rashes or lesions noted Course Vital Signs: Vital signs: Vital Signs Temperature 98.0 F 05/08/22 16:52 Pulse Rate 73 05/08/22 16:52 Respiratory Rate 16 05/08/22 16:52 Blood Pressure 163/94 05/08/22 16:52 Pulse Oximetry 99 05/08/22 16:52 Oxygen Delivery Me thod 05/08/22 16:52 MDM - Extremity (Nontraumatic) Medical Decision Making 51-year-old female comes in today for complaints of right knee injury that occurred on Sunday, 10 days ago. On exam patient has tenderness to the knee with some minimal swelling. Decreased range of motion due to pain. No distal swelling. Distal pulses are intact. Differential diagnosis includes but not limited to sprain, meniscal injury, osteoarthritis. X-ray was unremarkable. Patient does have some arthritic changes. Reviewed exam with patient recommended activity as tolerated. Diclofenac for pain and inflammation. Hydrocodone for severe pain. Recommend follow-up with orthopedist for further evaluation and treatment. Return to ED for new concerns. Discharge Plan Discharge Patient Disposition: Home Clinical Impression: Knee derangement syndrome Qualifiers: Laterality: right Qualified Code(s): M23.91 - Unspecified internal derangement of right knee Condition: Stable Prescriptions: New hydrocodone-acetaminophen 5-325 mg tablet 1 tab PO Q8H PRN (Reason: pain (scale score 7-10)) Qty: 10 0RF diclofenac sodium 75 mg tablet,delayed release (DR/EC) 75 mg PO BID Qty: 20 0RF No Action lisinopril-hydrochlorothiazide 10-12.5 mg tablet 10 - 12.5 tab PO DAILY 90 Days Qty: 90 0RF montelukast [Singulair] 10 mg tablet 10 mg PO DAILY 90 Days Qty: 90 0RF gabapentin 100 mg capsule 100 mg PO BID azithromycin 250 mg tablet See Rx Instructions PO .COMPLEX Qty: 6 0RF Rx Instructions: take 500 mg today (day 1), then 250 mg for 4 days (days 2-5) PO cetirizine [Zyrtec] 10 mg tablet 10 mg PO DAILY 30 Days Qty: 90 0RF cholecalciferol (vitamin D3) 125 mcg (5,000 unit) capsule See Rx Instructions .ROUTE .COMPLEX Qty: 30 1RF Dose Instruction: TAKE ONE CAPSULE BY MOUTH DAILY Rx Instructions: TAKE ONE CAPSULE BY MOUTH DAILY Discharge Orders: Discharge ED (Routine); Ordered 05/08/22 Ordered By: Luis John Referrals: Mili Cruz FNP [Primary Care Provider] - Discharge Diet: Usual diet Discharge Activity: Increase activity as tolerated Patient Instructions: Knee Pain (ED) Activity Restrictions/Additional Instructions: Activity as tolerated. Use ice or heat for comfort. Use acetaminophen to help control pain. Take diclofenac 75 mg twice a day for pain and inflammation. Use hydrocodone for severe pain. Use crutches as needed until he can bear weight comfortably on the knee. Follow-up with orthopedist office for further evaluation and treatment. Return to ED for new concerns. Coding Level of Care Code ED Souvenir Assembler for Mya Washburn
[2022-05-08] MEDS: HYDROcodone-acetaminophen 7.5-325 mg Tablet 1 TAB PO (18:06)
[2022-05-08] MEDS: ketorolac 30 mg/mL INJ IM (18:06)
--- NOTE | 2022-05-09 08:31 | DCPLANNER ---
Addendum entered by Ele Long 05/18/22 09:38: manager purchasing called Johanny marcos - was told that clinic did receive patients information, it will be reviewed, clinic will contact patient Addendum entered by Ele Long 05/11/22 17:13: Patient called renal case manager and wanted to be referred to Johanny Muñoz. manager purchasing faxed patients information to Johanny. Patients information will be reviewed and clinic will call patient with appointment information. Addendum entered by Ele Long 05/11/22 11:42: manager purchasing called patient, left a voicemail for patient to return case supervisor phone call. Original Note: manager purchasing had message to schedule a follow up appointment for patient with ortho. manager purchasing sent patients information to the front office staff at ortho. Patients information will be printed and reviewed. Clinic will call patient with appointment information.
== END 2022-05-08 18:14 | disposition home or self-care (01) ==
PROVIDERS: Emergency Provider Nurse Practitioner Family; PCP Nurse Practitioner Family
DX: M23.91 Unspecified internal derangement of right knee (principal); M17.11 Unilateral primary osteoarthritis, right knee; E78.2 Mixed hyperlipidemia; I10 Essential (primary) hypertension
CPT/HCPCS: 73562; 96372; 99284; J1885

== ENCOUNTER 2022-06-12 11:49 | Outpatient (CLI) | payer OTHER, MEDICAID, SELFPAY ==
--- NOTE | 2022-06-12 11:45 | MR_ITS ---
WS: [id number] MRI RIGHT KNEE NONCONTRAST TECHNIQUE: Axial PD, coronal PD fat sat, coronal PD, sagittal PD, and sagittal PD fat-sat images obta ined. CLINICAL INFORMATION: Z98.890 - Other specified postprocedural states COMPARISON: None. FINDINGS: Distal quadriceps and patella tendons are intact. Hypertrophic patella. Small suprapatellar effusion. Normal ACL and PCL. Advanced chondromalacia patella with hypertrophic patella. Normal medial and lateral patellar retinac ulum. Tiny popliteal cyst. Advanced narrowing medial and lateral joint compartments with complete los s of joint space and associated subchondral edema. This is worse in the lateral joint compartment. No rmal medial and lateral collateral ligaments. Blunting of the anterior horn lateral meniscus and posterior horn medial meniscus compatible with men iscal tears. Complex tear posterior horn medial meniscus extending to the articular surface. MR/MR knee RT wo con* [id number] IMPRESSION: 1. 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 2. Normal ACL and PCL. Small suprapatellar effusion. 3. Meniscal tears involving the posterior horn medial meniscus and anterior ho rn lateral meniscus with blunting. 4. Advanced chondromalacia patella with a small amount of subchondral edema. 5. Medial and lateral collateral ligaments are intact. 6. Tiny popliteal cyst. Outbridge grading: grade IV: full-thickness cartilage loss with underlying bone reactive changes
== END 2022-06-12 11:50 | disposition home or self-care (01) ==
LOC: RAD 11:51
PROVIDERS: PCP Nurse Practitioner Family; Visit Provider Nurse Practitioner Family
DX: M23.91 Unspecified internal derangement of right knee (principal); Z98.890 Other specified postprocedural states; M17.11 Unilateral primary osteoarthritis, right knee
CPT/HCPCS: 73721

== ENCOUNTER → 2022-06-16 10:31 | Outpatient (BNVA) | payer OTHER, MEDICAID, SELFPAY | PROVIDERS: PCP Nurse Practitioner Family; Visit Provider Nurse Practitioner Family | DX: E55.9 Vitamin D deficiency, unspecified (principal); R53.83 Other fatigue; D64.9 Anemia, unspecified | CPT/HCPCS: 82306; 82607; 83540; 83735; 85025 ==

== ENCOUNTER 2022-11-07 15:52 | Emergency (ER) | payer OTHER, MEDICAID, SELFPAY ==
[2022-11-07 15:59] VITALS: BP 133/86; PULSE 82; RESP 16; TEMP 36.7; O2SAT 99; BMI 34.0
--- NOTE | 2022-11-07 16:37 | USR_ITS ---
PROCEDURE INFORMATION: Exam: US Duplex Right Lower Extremity Veins, Limited Exam date and time: 11/07/2022 5:08 PM Age: 51 years old Clinical indication: Pain; Leg, lower; Right; Additional info: Pain/swelling TECHNIQUE: Imaging protocol: Real-time duplex ultrasound of the right extremity with 2-D peres scale, color Doppler flow and spectral waveform analysis including responses to compression and other maneuvers (when performed) with image documentation. Limited exam was focused on the right lower extremity veins. COMPARISON: US soft tissue/extremity [id number] 04/07/2021 1:04 PM FINDINGS: Right deep veins: Unremarkable. The common femoral, femoral, proximal profunda femoral and popliteal veins as well as the visualized deep veins of the lower leg are patent without thrombus. Normal Doppler waveforms. Normal compressibility and/or augmentation response. Superficial veins: Unremarkable. Saphenofemoral junction is patent without thrombus. Soft tissues: Unremarkable. US/[place] [id number] IMPRESSION: No evidence of deep vein thrombosis.
--- NOTE | 2022-11-07 16:39 | W.ED.EXTPRO ---
HPI - Extremity Problem General: Chief complaint: Extremity Problem,Nontraumatic Stated complaint: possible blood clot below right knee Time Seen by Provider: 11/07/22 16:23 Source: patient Mode of arrival: ambulatory History of Present Illness: 51-year-old female presents emergency room with complaint of right lower leg swelling and tenderness she has tenderness in the calf and in the distal medial thigh. She had seen a chiropractor today and had discomfort. It is painful to that deep palpation touch. She has not had any shortness of breath or chest pain no history of DVT. She has had symptoms for 6 days. MD Complaint: extremity pain and extremity swelling Onset (ago): day(s) Pain Consistency: constant Location: right and lower extremity Quality: aching Relieving factors: nothing Exacerbating factors: nothing Associated symptoms: Deny arthralgias, chest pain, fever(s), myalgias, rash or short of breath Review of Systems Const: Denies: fever(s) or chills Card: Denies: chest pain Resp: Denies: dyspnea Musc: Reports: extremity pain and extremity swelling Skin/Breast: Denies: rash PFSH ED PFSH: Medical History Anemia Bilateral otitis media Breast cancer screening by mammogram Cervical strain Changing skin lesion Ear infection Environmental and seasonal allergies Essential hypertension Fatigue Headache Medication management Mixed hyperlipidemia Neck pain Obesity Otitis media Post-menopausal atrophic vaginitis Rectal bleeding Tick bite UTI due to extended-spectrum beta lactamase (ESBL) producing Escherichia coli Vitamin D deficiency Vitamin D deficiency Surgical History H/O section H/O neck surgery H/O: hysterectomy partial H/O: knee surgery RIGHT Hx of appendectomy Hx of breast reduction, elective Hx of cholecystectomy Family History Father Colon cancer, Onset Age: 74 Grandfather No problems noted. Family/Other No problems noted. Grandmother Diabetes paternal great Mother Hypertension Stroke Uterine cancer late 50's Sister Uterine cancer 40's x2 sister Denies family history of Ovarian cancer CAD (coronary artery disease) Clotting disorder Hyperlipidemia Breast cancer Anesthesia complication Bleeding disorder Social History (Reviewed 11/07/22 @ 18:28 by WENCESLAO Hagan Smoking and tobacco status: never smoked Alcohol intake: never Substance/Drug Use: never Physical Exam Const: GENERAL APPEARANCE: cooperative and comfortable ORIENTATION/CONSCIOUSNESS: Yes awake, Yes oriented to person, Yes oriented to place and Yes oriented to time HENMT: COMMON NORMALS: normocephalic, atraumatic and hearing grossly normal bilaterally HEAD & SCALP: normocephalic and atraumatic Resp: COMMON NORMALS: normal respiratory effort, No retractions, No use of accessory muscles and clear to auscultation bilaterally AUSCULTATION: clear to auscultation bilaterally Cardio: COMMON NORMALS: regular rate, regular rhythm and No murmurs present (Cardio) RATE: regular rate RHYTHM: regular rhythm GI: COMMON NORMALS: Soft to palpation and No hepatosplenomegaly present AUSCULTATION: Yes normoactive bowel sounds PALPATION: Yes Soft to palpation, No Tenderness to palpation present (GI), No Guarding due to palpation present (GI) and Yes No hepatosplenomegaly present Extremity: OTHER: Positive Homans right lower extremity pain at the distal medial thigh with mild palpation and compression Neuro: SENSORIUM/ORIENTATION: Yes oriented to person, Yes oriented to place and Yes oriented to time Skin: COMMON NORMALS: no rashes or lesions noted GENERAL SKIN EXAM: no rashes or lesions noted Course Vital Signs: Vital signs: Vital Signs Temperature 98.1 F 11/07/22 15:59 Pulse Rate 82 11/07/22 17:45 Respiratory Rate 16 11/07/22 17:45 Blood Pressure 133/86 11/07/22 17:45 Pulse Oximetry 99 11/07/22 17:45 Oxygen Delivery Me thod Room Air 11/07/22 15:59 MDM - Extremity (Nontraumatic) Medical Decision Making Venous duplex negative. Based on exam suspect superficial thrombophlebitis. Discussed with patient discharge home anti-inflammatories warm moist heat follow-up as needed Medical Records I reviewed the patient's medical records. Lab Data I reviewed the patient's lab results. Radiology Impressions Venous Duplex 11/07/22 16:37 IMPRESSION: No evidence of deep vein thrombosis. Discharge Plan Discharge Patient Disposition: Home Clinical Impression: Superficial thrombophlebitis Condition: Stable Prescriptions: No Action montelukast [Singulair] 10 mg tablet 10 mg PO DAILY 90 Days Qty: 90 0RF cetirizine [Zyrtec] 10 mg tablet 10 mg PO DAILY 30 Days Qty: 90 0RF acyclovir 5 % ointment 1 applic topical 6XD 7 Days Qty: 15 1RF cholecalciferol (vitamin D3) 125 mcg (5,000 unit) capsule See Rx Instructions .ROUTE .COMPLEX Qty: 30 1RF Dose Instruction: TAKE ONE TABLET BY MOUTH DAILY Rx Instructions: TAKE ONE TABLET BY MOUTH DAILY lisinopril-hydrochlorothiazide 10-12.5 mg tablet See Rx Instructions .ROUTE .COMPLEX Qty: 90 1RF Dose Instruction: Take 1 tablet by mouth once daily Rx Instructions: Take 1 tablet by mouth once daily diclofenac sodium 75 mg tablet,delayed release (DR/EC) See Rx Instructions .ROUTE .COMPLEX Qty: 90 1RF Dose Instruction: Take 1 tablet by mouth once daily Rx Instructions: Take 1 tablet by mouth once daily fluoxetine 20 mg capsule See Rx Instructions .ROUTE .COMPLEX Qty: 30 0RF Dose Instruction: Take 1 capsule by mouth once daily Rx Instructions: Take 1 capsule by mouth once daily Discharge Orders: Discharge ED (Routine); Ordered 11/07/22 Ordered By: Adrián Harman Referrals: Mili Cruz FNP [Primary Care Provider] - Discharge Diet: Usual diet Discharge Activity: Increase activity as tolerated Patient Instructions: Superficial Thrombophlebitis (ED), Opioid Safety, Pain Management Coding Level of Care Code ED Electrical Troubleshooter for May Washburn
[2022-11-07 17:45] VITALS: BP 133/86; PULSE 82; RESP 16; O2SAT 99
== END 2022-11-07 17:46 | disposition home or self-care (01) ==
PROVIDERS: Emergency Provider Family Medicine; PCP Nurse Practitioner Family
DX: I80.01 Phlebitis and thrombophlebitis of superficial vessels of right lower extremity (principal); I10 Essential (primary) hypertension; E78.5 Hyperlipidemia, unspecified
CPT/HCPCS: 93971; 99284

== ENCOUNTER → 2023-07-31 07:44 | Outpatient (BNVA) | payer MEDICAID, SELFPAY | PROVIDERS: PCP Nurse Practitioner Family; Visit Provider Podiatrist Foot & Ankle Surgery | DX: M79.672 Pain in left foot; M72.2 Plantar fascial fibromatosis | CPT/HCPCS: 73630 ==